=== PATIENT | male | born 1975 | race Two or more races ===

== ENCOUNTER 2018-09-27 00:07 | Emergency (ER) | payer SELFPAY ==
--- NOTE | 2018-09-27 00:49 | ER Document Report ---
ED General - General Chief Complaint: Chest Pain Stated Complaint: FLANK PAIN Time Seen by Provider: 09/27/18 00:48 Primary Care Provider: JALEN MCKEON MD [ACTIVE STAFF] - 09/27/18 Notes: Patient is a 43-year-old male who presents with complaints of feeling a sensation as if his heart beats hard and then he will sometimes get pain in the left chest. He is actually been having these symptoms off and on for a long time. Patient says that seem to last longer today and therefore he came to the ER. No associated difficulty breathing. He denies exertional dyspnea. No leg pain or leg swelling. Pain left side is not pleuritic. No leg pain or leg swelling. No recent long travel or road trips. He does have a family history of heart disease. His dad had a heart attack at the age of 56 and . None of his siblings have had heart attacks. Patient does have a history of high blood pressure and his recent starting of blood pressure medication but he cannot remember the name of the medication. No fevers. No recent infections. No history of diabetes. No other complaints at this time. TRAVEL OUTSIDE OF THE [place] IN LAST 30 DAYS: No - Related Data Allergies/Adverse Reactions: No Known Allergies Allergy (Verified 05/30/15 16:23) Past Medical History - Social History Smoking Status: Never Smoker Frequency of alcohol use: Rare Drug Abuse: None Family History: Reviewed & Not Pertinent Review of Systems - Review of Systems Notes: My Normal Review Basic REVIEW OF SYSTEMS: CONSTITUTIONAL : Denies fever, chills, or sweats. Denies recent illness. CARDIOVASCULAR: Some chest pain RESPIRATORY: Denies cough, cold, or chest congestion. Denies shortness of breath, difficulty breathing, or wheezing. GASTROINTESTINAL: Denies abdominal pain. Denies nausea, vomiting, or diarrhea. MUSCULOSKELETAL: Denies neck or back pain or joint pain or swelling. SKIN: Denies rash or skin lesions. NEUROLOGICAL: Denies altered mental status or loss of consciousness. Denies headache. Denies weakness or paralysis or loss of use of either side. Denies problems with gait or speech. Denies sensory or motor loss. ALL OTHER SYSTEMS REVIEWED AND NEGATIVE. Physical Exam - Vital signs Vitals: Temp Pulse Resp BP Pulse Ox 97.8 F 76 16 153/96 H 96 09/27/18 00:31 09/27/18 00:31 09/27/18 00:31 09/27/18 00:31 09/27/18 00:31 - Notes Notes: General Appearance: Well nourished, alert, cooperative, no acute distress, no obvious discomfort. Well appearing. Vitals: reviewed, See vital signs table. Head: no swelling or tenderness to the head Eyes: PERRL, EOMI, Conjuctiva clear Lungs: No wheezing, No rales, No rhonci, No accessory muscle use, good air exchange bilaterally. Chest wall: No reproducible pain to palpation of chest wall. Heart: Normal rate, Regular rythm, No murmur, no rub Abdomen: Normal BS, soft, No rigidity, No abdominal tenderness, No guarding, no rebound, no abdominal masses, no organomegaly Extremities: good pulses in all extremities, no swelling or tenderness in the e xtremities, no edema. Skin: warm, dry, appropriate color, no rash Neuro: speech clear, oriented x 3, normal affect, responds appropriately to questions. Course - Re-evaluation Re-evalutation: 09/27/18 03:01 Nitro had no effect on the patient's chest pain. Patient still having the same type of pain. Is not in distress his vital signs are stable. His heart score is a 3. I talked to him about 2 different options which are admission versus repeat troponin with close follow-up with cardiology. Patient says he prefers not to stay in the hospital and would prefer to be discharged. He is willing to stay for me to at least do a repeat troponin to make sure that this is negative. 09/27/18 04:24 Patient's troponin and delta troponin are negative. EKG is normal. Heart score is 3. I did patient admission but he prefers to follow-up outpatient only with cardiology. I will refer him to cardiology. I strongly encouraged him return to ER immediately if he has worsening pain, difficulty breathing, or feels unwell. I do not suspect PE as the patient is not tachypneic, not tachycardic, not hypoxemic, he has no leg pain or leg swelling, his pain is not pleuritic, he has not had recent long travel. Dictation of this chart was performed using voice recognition software; therefore, there may be some unintended grammatical errors. - Vital Signs Vital signs: Temp Pulse Resp BP Pulse Ox 97.8 F 76 15 159/106 H 98 09/27/18 00:31 09/27/18 00:31 09/27/18 01:01 09/27/18 01:01 09/27/18 01:01 - Laboratory Result Diagrams: 09/27/18 00:53 09/27/18 00:53 Laboratory results interpreted by me: 09/27/18 00:53 Eosinophils % 7.6 H Absolute Eosinophils 0.8 H - EKG Interpretation by Me Additional EKG results interpreted by me: 09/27/18 00:48 EKGs reviewed and interpreted by me. EKG shows sinus rhythm with a rate of [address] segment elevation or depression. No ischemic T wave inversions. ID interval, QRS duration, QT intervals are within normal range. No old EKG available for comparison. Discharge - Discharge Clinical Impression: Chest pain Qualifiers: Chest pain type: unspecified Qualified Code(s): R07.9 - Chest pain, unspecified Condition: Good Disposition: HOME, SELF-CARE Additional Instructions: Your workup for looking for a dangerous etiology behind your chest pain is negative at this time. Despite a negative workup we still feel it is appropriate to follow-up with a [facility]. The salesperson burial needs name is Dr. Leilani vu. Please call his office to make a close follow-up appointment. He will reevaluate you and determine whether not you need an outpatient stress test. Please take 81 mg of aspirin every day. Please return to the ER if you have worsening pain, difficulty breathing, fevers, or feel that you are worsening in any. Forms: Return to Work Referrals: JALEN MCKEON MD [ACTIVE STAFF] - 09/27/18
[2018-09-27] MEDS ORDERED: NITROGLYCERIN 2% OINTMENT 1 GM PACKET TP ONE (00:57)
[2018-09-27 01:07] LABS: ABSOLUTE BASOPHILS # (AUTO) 0.1 10^3/uL (0.0-0.2); ABSOLUTE EOSINOPHILS # (AUTO) 0.8 10^3/uL (0.0-0.6); ABSOLUTE LYMPHOCYTES (AUTO) 4.1 10^3/uL (0.5-4.7); ABSOLUTE MONOCYTES (AUTO) 0.8 10^3/uL (0.1-1.4); ABSOLUTE NEUT (AUTO) 4.7 10^3/uL (1.7-8.2); BASOPHILS % (AUTO) 0.8 % (0-2); EOSINOPHILS % (AUTO) 7.6 % (0-6); HEMATOCRIT 45.9 % (37.9-51.0); HEMOGLOBIN 16.2 g/dL (13.5-17.0); LYMPHOCYTES % (AUTO) 38.6 % (13-45); MEAN CORPUSCULAR HEMOGLOBIN 29.8 pg (27.0-33.4); MEAN CORPUSCULAR HGB CONC 35.3 g/dL (32.0-36.0); MEAN CORPUSCULAR VOLUME 85 fl (80-97); PLATELET COUNT 338 10^3/uL (150-450); RED BLOOD COUNT 5.43 10^6/uL (4.35-5.55); RED CELL DISTRIBUTION WIDTH 13.3 % (11.5-14.0); TOTAL CELLS COUNTED % (AUTO) 100 %; WHITE BLOOD COUNT 10.5 10^3/uL (4.0-10.5)
[2018-09-27 01:17] LABS: ALANINE AMINOTRANSFERASE 42 U/L (21-72); ALBUMIN 4.1 g/dL (3.5-5.0); ALKALINE PHOSPHATASE 82 U/L (38-126); ANION GAP 10 (5-19); ASPARTATE AMINO TRANSFERASE 28 U/L (17-59); BILIRUBIN,DIRECT 0.3 mg/dL (0.0-0.4); BILIRUBIN,TOTAL 0.4 mg/dL (0.2-1.3); BLOOD UREA NITROGEN 17 mg/dL (7-20); CALCIUM 9.3 mg/dL (8.4-10.2); CARBON DIOXIDE 25 mmol/L (22-30); CHLORIDE 104 mmol/L (98-107); GLUCOSE 106 mg/dL (75-110); POTASSIUM 3.7 mmol/L (3.6-5.0); SODIUM 138.7 mmol/L (137-145); TOTAL PROTEIN 7.5 g/dL (6.3-8.2)
[2018-09-27] MEDS ORDERED: ASPIRIN 325 MG TABLET PO ONE (01:48)
--- NOTE | 2018-09-27 02:09 | RADIOLOGY REPORT (SQ) ---
EXAM DESCRIPTION: XR CHEST 1 VIEW COMPLETED DATE/TME: 09/27/2018 00:56 CLINICAL HISTORY: 43 years, Male, chest pain COMPARISON: None. NUMBER OF VIEWS: 1 TECHNIQUE: Portable chest LIMITATIONS: None. FINDINGS: Heart size normal. Lungs clear. No pneumothorax IMPRESSION: Negative chest copyright 2010 [employer]- All Rights Reserved
[2018-09-27 04:27] VITALS: BP 129/89
--- NOTE | 2018-09-27 07:49 | EKG REPORT ---
SEVERITY:- BORDERLINE ECG - SINUS RHYTHM BORDERLINE T ABNORMALITIES, INFERIOR LEADS : Confirmed by: Hilario Ellington MD 27-Sep-2018 07:47:27
== END 2018-09-27 04:26 | disposition home or self-care (01) ==
LOC: ER 00:07
DX: R07.9 Chest pain, unspecified (principal); R09.89 Other specified symptoms and signs involving the circulatory and respiratory systems; I10 Essential (primary) hypertension; Z82.49 Family history of ischemic heart disease and other diseases of the circulatory system
CPT/HCPCS: 36415; 71045; 80053; 84484; 85025; 93005; 93010; 99284